=== PATIENT | male | born 1960 | race Caucasian/White ===

== ENCOUNTER 2018-09-14 10:53 | Emergency (ER) | payer MEDICAID ==
[2018-09-14 11:03] VITALS: BP 143/85; PULSE 63; RESP 16; TEMP 97.7; O2SAT 100
--- NOTE | 2018-09-14 11:14 | C.PDOC ---
History Of Present Illness 58 year old male, with no significant PMHx, presents to the ED for evaluation of pain and swelling to his left ankle which began after he inverted his foot while walking two days ago. Patient states he is able to bear weight and denies head injury, falls, neck pain, dizziness prior to the incident. Time Seen by Provider: 09/14/18 11:00 Chief Complaint (Nursing): Lower Extremity Problem/Injury History Per: Patient History/Exam Limitations: no limitations Onset/Duration Of Symptoms: Days (2) Current Symptoms Are (Timing): Still Present - Ankle/Foot Description Of Injury: Other (inverted left ankle ) Past Medical History Reviewed: Historical Data, Nursing Documentation, Vital Signs - Medical History PMH: No Chronic Diseases Surgical History: No Surg Hx Family History: States: Unknown Family Hx Review Of Systems Musculoskeletal: Positive for: Other (left ankle pain ). Negative for: Neck Pain Neurological: Negative for: Other (head injury ) Physical Exam - Physical Exam Appears: Non-toxic, No Acute Distress Skin: Normal Color, Warm, Dry Extremity: Tenderness (to left lateral malleolus ), Capillary Refill (less than 2 seconds ), Swelling (to left lateral malleolus ) Neurological/Psych: Oriented x3, Normal Speech, Normal Cognition ED Course And Treatment O2 Sat by Pulse Oximetry: 100 (on RA) Pulse Ox Interpretation: Normal - Other Rad left ankle XR X-Ray: Viewed By Me, Read By Radiologist Interpretation: Date of service: 09/14/2018. PROCEDURE: Left Ankle Radiographs. HISTORY: twisted angle. COMPARISON: None available. FINDINGS: BONES: Normal. No fracture. JOINTS: There is some flattening of the talar dome. SOFT TISSUES: Normal. OTHER FINDINGS: None. IMPRESSION: No acute fracture Medical Decision Making Medical Decision Making: Plan: * left ankle XR * Motrin PO * Tylenol PO * reassess and disposition Progress: left ankle XR ordered, shows no fracture. Motrin PO and Tylenol PO given. GEE wrap applied by photographic equipment technician and checked by me. On reassessment, patient is resting comfortably, showing no signs of distress and is stable for discharge. Patient is advised to follow up with orthopedic care within 1-2 days for further evaluation. Disposition Counseled Patient/Family Regarding: Studies Performed, Diagnosis, Need For Followup, Rx Given - Disposition Disposition: HOME/ ROUTINE Disposition Time: 12:42 Condition: STABLE Prescriptions: Ibuprofen [Motrin] 1 tab PO TID PRN #30 tab PRN Reason: Pain Instructions: Ankle Sprain (DC) Forms: Gen Discharge Inst Bangladeshi, [facility] (Bangladeshi) - POA Present On Arrival: None - Clinical Impression Clinical Impression: Sprain of ankle, left - Scribe Statement The provider has reviewed the documentation as recorded by the Scribe (Karen Gonzalez) Provider Attestation: All medical record entries made by the Scribe were at my direction and personally dictated by me. I have reviewed the chart and agree that the record accurately reflects my personal performance of the history, physical exam, medical decision making, and the department course for this patient. I have also personally directed, reviewed, and agree with the discharge instructions and disposition.
--- NOTE | 2018-09-14 12:10 | RAD ---
Date of service: 09/14/2018 PROCEDURE: Left Ankle Radiographs. HISTORY: twisted angle COMPARISON: None available. FINDINGS: BONES: Normal. No fracture. JOINTS: There is some flattening of the talar dome. SOFT TISSUES: Normal. OTHER FINDINGS: None. IMPRESSION: No acute fracture
== END 2018-09-14 12:51 | disposition home or self-care (01) ==
LOC: C.ER 10:53
DX: S93.402A Sprain of unspecified ligament of left ankle, initial encounter (principal); X50.9XXA Other and unspecified overexertion or strenuous movements or postures, initial encounter; Y93.01 Activity, walking, marching and hiking